=== PATIENT | female | born 1945 | race Caucasian/White ===

== ENCOUNTER 2016-11-20 14:26 | Observation (INO) ==
--- NOTE | 2016-11-20 14:50 | Cardiology History & Physical ---
Date of Encounter: 11/20/16 Time of Encounter: 14:46 Assessment and Plan (1) CAD (coronary artery disease) Current Visit: Yes Status: Chronic Per cardiology: -Known CAD with CABG x3 2007, -LHC 2011 with 100% LAD, 70-80% proximal circumflex, 100% RCA, distal RCA fills from left to right collaterals, ZAYAS to LAD patent with previous stent patent, SVG to RCA occluded, SVG to OM occluded. -ECho 2013 with LVEF 65-70%, mild asymmetric septal hypertrophy, No evidence of LVOT obstruction, moderate elft ventricular diastolic dysfunction, mildly dilated left atrium, no significnat valvular dysfunction, all wall segments with normal motion. -Patient was seen and examined by in outpatient setting. PLan for [facility]. Patient being admitted now for IV fluid hydration. -Patient reported at last cardiology visit increasing chest pain at rest and with excertion. Also reports shortness of breath with excertion. -Patient at home on norvasc, imdur, plavix, metoprolol, losartan, and ranexa at home. -Per discussion with , will start mucomyst 1200mg po BID. -Will start IV fluids at 75ml/horu starting tonight at 2000. -Will obtain CBC, BMP, and ECG. -Plan for [facility] tomorrow pending labs and ECG. The assessment and plan as outlined above was discussed with the patient and/or family members who expressed understanding and agreement. All questions were answered. Qualifiers: Coronary Disease-Associated Artery/Lesion type: unspecified vessel or lesion type [place] vs. transplanted heart: [place] heart Associated angina: with unspecified angina Qualified Code(s): I25.119 - Atherosclerotic heart disease of [place] coronary artery with unspecified angina pectoris (2) Hypertension Current Visit: Yes Status: Chronic Per cardiology: -Known history of HTN. -Will continue home doses of anti-hypertensives. -Will continue to monitor. The assessment and plan as outlined above was discussed with the patient and/or family members who expressed understanding and agreement. All questions were answered. Qualifiers: Hypertension type: essential hypertension Qualified Code(s): I10 - Essential (primary) hypertension (3) Diabetes mellitus Current Visit: Yes Status: Chronic Per cardiology: -Known DM type 2. -Will re-start home dose of oral diabetes medications. -Will order FS ACHS with sliding scale. The assessment and plan as outlined above was discussed with the patient and/or family members who expressed understanding and agreement. All questions were answered. Qualifiers: Diabetes mellitus type: type 2 Diabetes mellitus complication status: with kidney complications Diabetes mellitus complication detail: with chronic kidney disease Diabetes mellitus moth exterminator insulin use: without detention use Chronic kidney disease stage: stage 3 (moderate) Qualified Code(s): E11.22 - Type 2 diabetes mellitus with diabetic chronic kidney disease; N18.3 - Chronic kidney disease, stage 3 (moderate) (4) CKD (chronic kidney disease) stage 3, GFR 30-59 ml/min Current Visit: Yes Status: Chronic Per cardiology: -Known CKD stage 3. -Last creatinine 1.39 on 10/12/16. -Follows with . -Will give IV hydration overnight for LHC in am. -Will give mucomyst 1200mg po BID. _Will check BMP. -Will continue to monitor. The assessment and plan as outlined above was discussed with the patient and/or family members who expressed understanding and agreement. All questions were answered. History of Present Illness Chief complaint: hydration prior to LHC HPI: Ms. Neil is a 71 year old female with a relevant past medical history of GI bleed, CA, CAD, TB, HTN, RA, DM, CKD, CABG x3 2007. Patient reports she was a previous smoker and smoked 2 ppd for 50 years. Patient was seen and evaluated by in outpatient setting. Patient complained of chest pain at rest and with excertion. Patient also reported excertional dyspnea. Patient was scheduled for LHC. Patient admitted today for IV fluid hydration prior to LHC. Patient denies current chest pain. Patient reports shortness of breath and fatigue are about baseline. Patient will undergoe LHC tomorrow. Patient states she wears O2 at night. Past Med Surg Social Fam HX - Past Medical History Attestation: Yes The following information was validated with the patient. Source: patient, old records reviewed Medical history: coronary artery disease, diabetes, hypertension, myocardial infarction, other - Past Surgical History Surgical History: coronary bypass (CABG) - Social History Smoking Status: Former smoker Smokeless Tobacco Status: No Alcohol use: none Drug use: none Medications and Allergies Glimepiride [Amaryl] 4 mg PO BID 11/20/16 [History] Allergies No Known Allergies Allergy (Verified 10/12/16 11:48) All Systems Review: A 10-system review of systems was performed and is negative for pertinent findings except as documented above in the HPI. - Cardiovascular Cardiovascular: as per HPI, chest pain at rest, chest pain with exertion, dyspnea on exertion Physical Examination Selected Entries 11/20/16 15:08 Temperature 97.5 F L Pulse Rate 61 Respiratory Rate 17 Blood Pressure 166/70 O2 Sat by Pulse Oximetry 95 General: Conversant, No Apparent Distress HEENT: Atraumatic, Normocephaly, Mucus Membranes Moist Neck: No JVD, Normal carotid pulses Cardiac: Reg Rate and Rhythm, Normal S1 and S2, No Murmur Lungs: Normal Breath Sounds, No Wheeze, Rales, Rhonchi Neuro: Alert and responsive, No focal deficits noted Abdomen: Soft, Non-Tender Skin: No rashes noted on visualized skin Musculoskeletal: No Chest Wall Tenderness Extremities: No Clubbing, No Cyanosis, No Edema, Normal Pulses Results Labs pending. - Imaging and Cardiology Stress Test: report reviewed Echo: report reviewed Cardiac cath: pending, report reviewed - EKG Interpretation EKG results cardiology: personally reviewed (No ECG to review at this time, ECG ordered,)
[2016-11-20] MEDS ORDERED: Naloxone 0.4 MG/ML INJ IVP PRN (14:57)
[2016-11-20] MEDS ORDERED: Acetaminophen 325 MG TABLET PO PRN (14:57)
[2016-11-20] MEDS ORDERED: Ondansetron ODT 4 MG TAB.RAPDIS SL PRN (14:57)
[2016-11-20] MEDS ORDERED: Dextrose Gel 15 GM PO PRN ×2 (15:15)
[2016-11-20] MEDS ORDERED: *HR* Dextrose 50 % in Water (Syg) 50 ML SYRINGE IVP PRN (15:15)
[2016-11-20] MEDS ORDERED: D5% in Water 1,000 ML IVC PRN (15:15)
[2016-11-20 15:31] LABS: Basophils % 0.2 %; Eosinophils # 0.2 K/mcL (0.0-0.6); Hematocrit 36.1 % (35.3-44.9); Hemoglobin 12.1 g/dL (11.5-15.4); Immature Granulocytes % 0.4 % (0-4); Lymphocytes # 1.7 K/mcL (0.6-4.6); Mean Corpuscular HGB Conc 33.5 g/dL (31.6-35.5); Mean Corpuscular Hemoglobin 29.4 pg (28.0-33.3); Mean Corpuscular Volume 87.8 fL (83.0-100.0); Mean Platelet Volume 11.7 fL (9.4-12.4); Monocytes # 0.9 K/mcL (0.0-1.3); Monocytes % 9.3 %; Neutrophils # 7.2 K/mcL (1.6-8.9); Platelet Count 169 K/mcL (140-400); Red Blood Count 4.11 M/mcL (3.82-4.97); Red Cell Distribution Width 13.4 % (11.5-14.5); Segmented Neutrophils % 71.1 %
[2016-11-20] MEDS ORDERED: Nitroglycerin 0.4 MG TAB.SUBL SL PRN (15:38)
[2016-11-20] MEDS ORDERED: Ondansetron ODT 4 MG TAB.RAPDIS PO PRN (15:38)
[2016-11-20] MEDS ORDERED: *HR* LORazepam 1 MG TABLET PO PRN (15:38)
[2016-11-20] MEDS ORDERED: *HR* OxyCODONE/APAP 5/325 TABLET PO PRN (15:40)
[2016-11-20] MEDS ORDERED: *HR* Enoxaparin 40 MG/0.4 ML SYRINGE SQ ONE (15:42)
[2016-11-20 15:43] LABS: Calcium 9.2 mg/dL (8.6-10.8); Potassium 4.6 mEq/L (3.5-4.5)
[2016-11-20] MEDS ORDERED: 0.9 % Sodium Chloride 1,000 ML ONE (17:36)
[2016-11-20] MEDS: *HR* Glimepiride 4 MG TABLET PO SCH (17:45)
[2016-11-20] MEDS: 0.9 % Sodium Chloride 1,000 ML IVC SCH (17:45)
[2016-11-20] MEDS: Insulin LISPRO 300 UNITS/3 ML VIAL SQ SCH (17:45)
[2016-11-20] MEDS ORDERED: Insulin LISPRO 300 UNITS/3 ML VIAL SQ SCH (21:00)
[2016-11-20] MEDS ORDERED: *HR* Acetylcysteine 20% 600 MG/3 ML ORAL SYRINGE PO SCH (21:00)
[2016-11-20] MEDS ORDERED: SENNOSIDES PO SCH ×3 (21:00→23:00)
[2016-11-20] MEDS: Ranolazine 500 MG TAB.ER.12H PO SCH (21:40)
[2016-11-20] MEDS: Gabapentin 300 MG CAPSULE PO SCH (21:43)
[2016-11-21 03:54] LABS: INR 1.1; Prothrombin Time 12.2 Seconds (9.4-12.1)
[2016-11-21] MEDS: 0.9 % Sodium Chloride 1,000 ML IVC SCH (06:38)
[2016-11-21] MEDS: Insulin LISPRO 300 UNITS/3 ML VIAL SQ SCH ×2 (08:37→12:00)
[2016-11-21] MEDS: *HR* Glimepiride 4 MG TABLET PO SCH (08:38)
[2016-11-21] MEDS ORDERED: Ubidecarenone [Coq10] 200 MG PO SCH (09:00)
[2016-11-21] MEDS ORDERED: Cholecalciferol (D-3) 1,000 UNIT TABLET PO SCH (09:00)
[2016-11-21] MEDS ORDERED: FISH OIL PO SCH (09:00)
[2016-11-21] MEDS ORDERED: Multivit/Ca/Min/Fe/FA 1 TAB TABLET PO SCH (09:00)
[2016-11-21] MEDS ORDERED: amLODIPine 5 MG TABLET PO SCH (09:00)
[2016-11-21] MEDS: Gabapentin 300 MG CAPSULE PO SCH (10:18)
[2016-11-21] MEDS: Ranolazine 500 MG TAB.ER.12H PO SCH (10:18)
--- NOTE | 2016-11-21 11:31 | Pre-Sedation Evaluation ---
Pre-sedation evaluation - Pre-sedation checklist Date of procedure: 11/21/16 Procedure: heart cath Recent Vitals: Last Vital Signs Temp 98.2 F 11/21/16 07:24 Pulse 65 11/21/16 07:24 Resp 16 11/21/16 07:24 BP 126/67 11/21/16 07:24 Pulse Ox 90 11/21/16 09:00 H&P (including ROS) documented in medical record: Yes Previous reaction to sedatives/anesthetics: No Dietary Status: NPO after Midnight ASA Classification *see protocol: CLASS II-Mild systemic disease Plan of Care: Pt appropriate candidate for procedure/moderate/conscious sedation , Risks/benefits of procedure/sedation discussed w/ patient/family
[2016-11-21] MEDS ORDERED: Heparin 1,000 UNITS/500 mL NS 500 ML ONE (13:22)
[2016-11-21] MEDS ORDERED: 0.9 % Sodium Chloride 1,000 ML ONE ×2 (13:22→13:54)
[2016-11-21] MEDS ORDERED: Nitroglycerin 1,000 MCG/10 ML VIAL IV ONE (13:23)
[2016-11-21] MEDS ORDERED: *HR* Heparin 10,000 UNIT/10 ML VIAL ONE (13:23)
[2016-11-21] MEDS ORDERED: *HR* Midazolam HCl 5 MG/5 ML VIAL IVP ONE (13:54)
[2016-11-21] MEDS ORDERED: *HR* FentaNYL (PF) 100 MCG/2 ML VIAL ONE (13:54)
--- NOTE | 2016-11-21 14:18 | Event Note ---
Date of Encounter: 11/21/16 Time of Encounter: 14:00 - Cardiology Event Note Severe CAD with patent ZAYAS LAD and left to right collaterals and severe circumflex stenosis. Patient notes she continues having chest discomfort like her previous angina despite medical therapy. A/R/B of [facility] discussed multiple times in clinic before and patient decided recently to proceed with invasive evaluation.
[2016-11-21] MEDS ORDERED: 0.9 % Sodium Chloride 1,000 ML IVC SCH (15:16)
--- NOTE | 2016-11-21 15:26 | Invasive Diagnostic Lab Proc ---
Name: Jammie Neil Date of Study: 11/21/2016 Date: 1945 Ht: 63.0in Medical Record#: [id number] Age: 71 Wt: 210.54lb Gender: Female BSA: 1.98 Order #: [id number] BMI: 37.3 Physicians Procedure Physician: Christopher Kim MD, FACC Referring MD: Referring MD: Staff Name Position Time In Lizzy Roberts RN Antenna Specialist 01:59 PM Camille Perez RT (R) Scrub 01:59 PM Sara Benavides RN Monitor 01:59 PM Pili Fong RN Nurse 01:59 PM Indications Indication Abnormal Test - Stress Procedures Performed Procedure L HRT ART/GRFT ANGIO Pre-Procedure Checklist Informed consent is complete signed and on chart. H\\T\\P is on chart. ID band is on and ID verified with patient. Patient NPO for procedure The procedure was described for the patient and questions were answered. ECG is on chart. Plan of Care Patient will tolerate the procedure without complications. Adequate level of comfort will be maintained. Hemodynamics will remain stable Patient will recover from procedure without complications. Respiratory function will be maintained. Cardiac rhythm will remain stable. Patient temperature will be maintained. Patient and/or family have verbalized understanding of the procedure. Patient Education Chief Complaint/Reason for Test: Cardiac Cath Developmental Category: Geriatric (65+ years) Developmentally Appropriate for Age: Yes Learning Barriers: None Education Needs: Plan of Care Education Method: Verbal Information Taught: Cardiac Cath Educational Evaluation: Able to repeat information Intravenous Access Time IV Size Location DC'd Fluid/Drip Rate Units RN 20g 1 06/26" Patent On Arrival Rt Arm 0.9NaCl 25 ml/hr Allergies No Known Allergies NKA Vital Signs Time BP (mmHg) HR (bpm) O2 Sat. RR (bpm) LOC 01:59 PM / % 5 = Fully awake and oriented or at pre-proc level 01:59 PM / % 4 = Oriented but drowsy 02:15 PM / % 5 = Fully awake and oriented or at pre-proc level 02:30 PM / % 5 = Fully awake and oriented or at pre-proc level 02:45 PM / % 4 = Oriented but drowsy 02:51 PM / % 5 = Fully awake and oriented or at pre-proc level 02:07 PM 157 / 81 59 100 % 10 02:11 PM 123 / 71 57 94 % 4 02:16 PM 106 / 71 57 93 % 15 02:21 PM 111 / 63 57 94 % 13 02:26 PM 122 / 63 53 97 % 15 02:31 PM 119 / 64 57 91 % 13 02:36 PM 118 / 64 57 93 % 15 02:41 PM 109 / 58 57 93 % 22 02:47 PM 124 / 63 59 91 % 11 02:51 PM 129 / 62 57 93 % 02:56 PM 128 / 62 58 93 % 16 03:01 PM 136 / 64 57 93 % 16 03:07 PM 132 / 60 55 93 % 18 Procedural Medications Time Medication Dose Units Method Given By 01:59 PM Oxygen 2 L/min nasal cannula Lizzy Roberts RN 02:07 PM Versed 3 mg Intravenous Lizzy Roberts RN 02:07 PM Fentanyl 50 mcg Intravenous Lizzy Roberts RN 02:25 PM Lidocaine 2% 20 ml Subcutaneous Christopher Kim MD, FACC 02:27 PM Versed 1 mg Intravenous Lizzy Roberts RN 02:27 PM Fentanyl 25 mcg Intravenous Lizzy Roberts RN ASA Classification: CLASS II- Mild systemic disease (i.e. well-controlled diabetes, hypertension, asthma, cigarette smoking) Presley Score Preprocedure Postprocedure Activity 2- Moves 4 extremities sustained head lift Activity 2- Moves 4 extremities sustained head lift Circulation 2- SBP +/= 20 points of pre-anesthetic level Circulation 2- SBP +/= 20 points of pre-anesthetic level Consciousness 2- Awake and alert oriented x 3 Consciousness 2- Awake and alert oriented x 3 O2 Saturation 2- Able to maintain O2 satruation of 92% on room air O2 Saturation 2- Able to maintain O2 satruation of 92% on room air Respiratory 2- Able to deep breathe and cough well Respiratory 2- Able to deep breathe and cough well Total Score 10 Total Score 10 Contrast Agent: Isovue Procedure Log Time Note Enter By 01:19 PM CathStat 01:59 PM Pt arrived to clinical genetics laboratory chief 2 at 13:58 [email or web address] 01:59 PM Lizzy Roberts RN Position: Antenna Specialist Time in: 13:59 [email or web address] 01:59 PM Camille Perez RT (R) Position: Scrub Time in: 13:59 [email or web address] 01:59 PM Woodward, Sara RN Position: Monitor Time in: 13:59 [email or web address] :59 PM Pili Fong RN Position: Nurse Time in: 13:59 [email or web address] :59 PM Patient charges- Angio tray pack, Navilyst 3mm J, Pulse Oximetry and ACIST tubing and transducer [email or web address] :59 PM Case Delayed No [email or web address] :59 PM Hair removed from procedure site in procedure lab using clippers. Bilateral groin prepped with Chloraprep by Pili Fong RN, safety strap applied then patient was draped. Skin intact. [email or web address] :59 PM Physician arrived 13:59 [email or web address] :59 PM ASA Class CLASS II- Mild systemic disease (i.e. well-controlled diabetes, hypertension, asthma, cigarette smoking) [email or web address] :59 PM Tim and mehul completed [email or web address] :59 PM Sign in performed according to hospital policy. [email or web address] :59 PM Procedure start 13:59 [email or web address] :59 PM Time: 13:59 Oxygen on at 2 L/min per nasal cannula by Lizzy Roberts RN [facility]3 :59 PM Time: 13:59 Patient comfortable and pain free: Yes [email or web address] :59 PM Time: 13:59LOC: 5 = Fully awake and oriented or at pre-proc level [email or web address] :59 PM Clinical Presentation: Unstable angina [email or web address] 02:00 PM Case Start 02:05 PM Vitals capture started with the following parameters, Patient=Adult, Interval=5 min, Initial Tpcdpfmp=043 mmHg, Deflation Rate=5 mmHg, Cuff placed on Right Arm 02:06 PM Recorded ECG: HR=59 Condition=Condition 1 02:07 PM HR=59 bpm, RLJK=718/81 mmhg, VtD5=548.0 %, Resp=10 B/min, Comment=SR 02:07 PM Time: 14:07 Versed 3 mg Intravenous Given by Lizzy Roberts RN3 02:07 PM Time: 14:07 Fentanyl 50 mcg Intravenous Given by Lizzy Roberts RN 02:11 PM HR=57 bpm, VQCD=188/71 mmhg, SpO2=94.0 %, Resp=4 B/min 02:12 PM Pressure channel 1 zeroed. 02:15 PM Time: 13:59LOC: 4 = Oriented but drowsy [email or web address] 02:15 PM Time: 13:59 Patient comfortable and pain free: Yes [email or web address] 02:16 PM HR=57 bpm, XCQF=608/71 mmhg, SpO2=93.0 %, Resp=15 B/min, Comment=SR 02:19 PM Recorded ECG: HR=58 Condition=Condition 1 02:21 PM HR=57 bpm, TMBG=094/63 mmhg, SpO2=94.0 %, Resp=13 B/min, Comment=SB 02:22 PM Time out performed according to hospital policy [email or web address] 02:25 PM Time: 14:25 20 ml Lidocaine 2% to right groin Subcutaneous Given by Christopher Kim MD, [facility] [email or web address] 02:26 PM HR=53 bpm, WHCJ=303/63 mmhg, SpO2=97.0 %, Resp=15 B/min, Comment=SB 02:27 PM Time: 14:27 Versed 1 mg Intravenous Given by Lizzy Roberts RN3 02:27 PM Time: 14:27 Fentanyl 25 mcg Intravenous Given by Lizzy Roberts RN3 02:28 PM Micro-Introducer Kit utilized for sheath placement [email or web address] 02:30 PM Time: 14:15 Patient comfortable and pain free: Yes [email or web address] 02:30 PM Time: 14:15LOC: 5 = Fully awake and oriented or at pre-proc level [email or web address] 02:30 PM Sheath exchanged for a 5 Fr 11 cm Cordis Ernestine sheath [id number] [email or web address] 02:30 PM 5Fr FR 4 catheter inserted over the wire [facility] [email or web address] 02:31 PM HR=57 bpm, LOOK=790/64 mmhg, SpO2=91.0 %, Resp=13 B/min, Comment=SB 02:31 PM 0.035 145cm VSI Patrick-Torque wire [id number] [email or web address] 02:34 PM Sheath exchanged for a 5 Fr 23 cm Cordis Ernestine sheath [id number] [email or web address] 02:36 PM HR=57 bpm, BKLK=570/64 mmhg, SpO2=93.0 %, Resp=15 B/min, Comment=SB 02:38 PM Recorded Pressure: Ao, HR=58, Condition=Condition 1 (Aorta) Ao 108/51/77 02:41 PM HR=57 bpm, XVFH=445/58 mmhg, SpO2=93.0 %, Resp=22 B/min, Comment=SB 02:43 PM Catheter removed [email or web address] 02:43 PM 5Fr IM catheter inserted over the wire [id number] [email or web address] 02:44 PM Recorded Pressure: Ao, HR=59, Condition=Condition 1 (Aorta) Ao 114/40/67 02:45 PM Recorded Pressure: Ao, HR=60, Condition=Condition 1 (Aorta) Ao 103/55/76 02:45 PM Time: 14:30LOC: 5 = Fully awake and oriented or at pre-proc level [email or web address] 02:45 PM Time: 14:30 Patient comfortable and pain free: Yes [email or web address] 02:45 PM Left YANN to the LAD angio performed in multiple views. [email or web address] 02:47 PM HR=59 bpm, WSAA=839/63 mmhg, SpO2=91.0 %, Resp=11 B/min, Comment=SB 02:47 PM 5Fr FL 4 catheter inserted over the wire DNC [email or web address] 02:47 PM Recorded Pressure: Ao, HR=59, Condition=Condition 1 (Aorta) Ao 114/59/82 02:47 PM LCA angiography performed in multiple views. [email or web address] 02:50 PM Lesion found in Proximal Circumflex. Pre Stenosis: 80 Pre LEW Flow: 3: Complete and Brisk Flow/Perfusion [email or web address] 02:50 PM Circumflex, Obtuse Marginal, Left Posterior Descending, and Left Posterolateral Coronary Arteries with 80 % stenosis. [email or web address] 02:51 PM HR=57 bpm, JYUX=672/62 mmhg, SpO2=93.0 %, Comment=SB 02:51 PM Catheter removed [email or web address] 02:51 PM 5Fr 3DRC catheter inserted over the wire [id number] [email or web address] 02:51 PM Time: 14:45LOC: 4 = Oriented but drowsy [email or web address] 02:51 PM Time: 14:45 Patient comfortable and pain free: Yes [email or web address] 02:52 PM Recorded Pressure: Ao, HR=57, Condition=Condition 1 (Aorta) Ao 124/50/79 02:53 PM Recorded Pressure: Ao, HR=57, Condition=Condition 1 (Aorta) Ao 113/37/80 02:53 PM RCA angiography performed in [place]. [email or web address] 02:53 PM Catheter removed [email or web address] 02:54 PM 5Fr Pigtail catheter inserted over the wire [facility] [email or web address] 02:54 PM Catheter selectively placed in left ventricle [email or web address] 02:55 PM Recorded Pressure: LV, HR=58, Condition=Condition 1 (Left Ventricle) LV 142/5/18 02:55 PM Recorded Pressure: LV, Ao, HR=62, Condition=Condition 1 (Left Ventricle) LV 131/6/13, (Aorta) Ao 100/52/71 02:55 PM Catheter removed [email or web address] 02:56 PM Bolus angiogram of right Femoral complete: 4 ml/sec for a total of 7 mls [email or web address] 02:56 PM HR=58 bpm, ZBLN=535/62 mmhg, SpO2=93.0 %, Resp=16 B/min, Comment=SB 02:57 PM Sheath exchanged for a 5 Fr 11 cm Cordis Ernestine sheath [id number] [email or web address] 02:59 PM Procedure completed at 14:59 [email or web address] 03:01 PM Arterial sheath pulled, Mynx closure device used and was Successful S/N. [email or web address] 03:01 PM HR=57 bpm, ZYMN=787/64 mmhg, SpO2=93.0 %, Resp=16 B/min, Comment=SB 03:03 PM Coronary Dominance: right [email or web address] 03:03 PM Lesion found in Proximal RCA. Pre Stenosis: 100 Pre LEW Flow: 0: No Flow/No perfusion [email or web address] 03:04 PM Right Coronary, Right Posterior Descending Arteries with Right Posterolateral and Acute Marginal branches with 100 % stenosis. [email or web address] 03:04 PM Lesion found in Proximal LAD. Pre Stenosis: 100 Pre LEW Flow: 0: No Flow/No perfusion [email or web address] 03:04 PM Proximal Left Anterior Descending Coronary Artery with 100% stenosis. [email or web address] 03:07 PM HR=55 bpm, HLDM=357/60 mmhg, SpO2=93.0 %, Resp=18 B/min, Comment=SB 03:07 PM Time: 14:51LOC: 5 = Fully awake and oriented or at pre-proc level [email or web address] 03:07 PM Time: 14:51 Patient comfortable and pain free: Yes [email or web address] 03:10 PM Complications: None [email or web address] 03:10 PM Opsite applied [email or web address] 03:13 PM Post ECG Sinus Bradycardia [email or web address] 03:13 PM Post Blood Pressure 132/60 [email or web address] 03:13 PM 15:13 Post Pulses Bilateral DP \\T\\ PT 1+ [email or web address] 03:15 PM Information taught Mynx [email or web address] 03:15 PM Education needs Disease Process and Responsibilities of Patient in Care [email or web address] 03:15 PM Learning barriers :None [email or web address] 03:16 PM Education Methods Verbal [email or web address] 03:16 PM Education evaluation Able to repeat information [email or web address] 03:16 PM Site status No bleeding/hematoma - Rt Groin as reported by Sites, Camille RT (R) at 15:10 [email or web address] 03:16 PM Report given to Gem CONWAY Pt taken to 3B Room #39. 15:16 [email or web address] 03:16 PM Plavix, Effient or Brilinta given No [email or web address] 03:16 PM Delay to floor No [email or web address] 03:16 PM Patient out of room: 15:16 [email or web address] 03:16 PM Family placed in consult room. [email or web address] 03:16 PM Complications: None [email or web address] Complications Complication None Hemodynamics Pressures Site Systolic/A Wave Diastolic/V Wave Mean AO 108 51 77 AO 114 40 67 AO 103 55 76 AO 114 59 82 AO 124 50 79 AO 113 37 80 LV 142 5 18 LV 131 6 13 AO 100 52 71 Post Procedure Information Blood Pressure: 132/60 mmHg Rhythm: Sinus Bradycardia Post procedural instructions were given Closure Device Time Device Success/Fail 11/21/2016 3:01:00 PM Mechanical Compression Successful Site Checks Time Location Status Staff Sheath In? Note 03:10 PM Rt Groin No bleeding/hematoma Sites, Camille RT (R) Pulses Time Site Pre-Procedure Post-Procedure Note 11/21/2016 1:59:00 PM Bilateral DP \\T\\ PT 2+ 11/21/2016 1:59:00 PM Bilateral radial 2+ 3:13:00 PM Bilateral DP \\T\\ PT 1+ Updated by Sara Benavides RN on 11/21/2016 3:18:20 PM Pili Fong RN electronically signed on 11/21/2016 3:20:28 PM with status of Final
--- NOTE | 2016-11-21 16:13 | Discharge Summary ---
Date of Encounter: 11/21/16 Time of Encounter: 16:11 - Discharge Diagnosis (1) Stable angina Priority: Primary Status: Acute (2) CAD (coronary artery disease) Priority: Primary Status: Chronic Qualifiers: Coronary Disease-Associated Artery/Lesion type: unspecified vessel or lesion type [place] vs. transplanted heart: [place] heart Associated angina: with stable angina Qualified Code(s): I25.118 - Atherosclerotic heart disease of [place] coronary artery with other forms of angina pectoris (3) Hypertension Priority: Secondary Status: Chronic Qualifiers: Hypertension type: essential hypertension Qualified Code(s): I10 - Essential (primary) hypertension (4) Diabetes mellitus Priority: Secondary Status: Chronic Qualifiers: Diabetes mellitus type: type 2 Diabetes mellitus complication status: with kidney complications Diabetes mellitus complication detail: with chronic kidney disease Diabetes mellitus detention insulin use: without salvage determiner use Chronic kidney disease stage: stage 3 (moderate) Qualified Code(s): E11.22 - Type 2 diabetes mellitus with diabetic chronic kidney disease; N18.3 - Chronic kidney disease, stage 3 (moderate) (5) CKD (chronic kidney disease) stage 3, GFR 30-59 ml/min Priority: Secondary Status: Chronic - Discharge Medications Home Medications: RX: Atorvastatin [Lipitor] 40 mg PO HS 11/20/16 [History] RX: Cholecalciferol (D-3) [Vitamin D] 5,000 units PO DAILY 11/20/16 [History] RX: Clopidogrel [Plavix] 75 mg PO DAILY 11/20/16 [History] RX: Docusate Sodium [Dok] 400 mg PO HS 11/20/16 [History] RX: Gabapentin [Neurontin] 300 mg PO BID 11/20/16 [History] RX: Glimepiride [Amaryl] 4 mg PO BID 11/20/16 [History] RX: Isosorbide MONOnitrate [Isosorbide Mononitrate ER] 120 mg PO DAILY 11/20/16 [History] RX: LORazepam [Ativan] 1 mg PO Q6HR PRN 11/20/16 [History] RX: Losartan Potassium [Cozaar] 50 mg PO DAILY 11/20/16 [History] RX: Metoprolol [Lopressor] 12.5 mg PO BID 11/20/16 [History] RX: Multivitamin [Multivitamins] 1 each PO DAILY 11/20/16 [History] RX: Nitroglycerin [Nitrostat] 0.4 mg SL Q5M PRN 11/20/16 [History] RX: Ondansetron ODT [Zofran ODT] 8 mg PO Q8H PRN 11/20/16 [History] RX: Pantoprazole Sodium [Protonix] 40 mg PO DAILY 11/20/16 [History] RX: Ranolazine [Ranexa] 1,000 mg PO BID 11/20/16 [History] RX: Sennosides [Ex-Lax] 60 mg PO HS 11/20/16 [History] RX: amLODIPine [Norvasc] 2.5 mg PO DAILY 11/20/16 [History] RX: Metoprolol [Lopressor] 12.5 mg PO BID tablet 11/21/16 [Rx] Allergies/Adverse Reactions: Allergies No Known Allergies Allergy (Verified 10/12/16 11:48) Procedures/tests Complete & Pending: Procedures Performed prior 72 hours Category Date Time Status CL Cardiac Catheterization [CL] Routine [employer] 11/21/16 12:00 Ordered ECG 12 lead ECG [ECG] Routine Y 11/20/16 14:57 Ordered Date of admission: 11/20/16 14:36 Primary care physician: Selene Lerner MD Consults: None Discharging clinician: Sea Oseguera Anticipated date of discharge: 11/21/16 - Patient Status Disposition: Home, Self-Care - Discharge Instructions Follow Up With: Selene Lerner MD [Primary Care Provider] - 12/04/16 3:00 pm - Diet and Activity Diet: low fat, low cholesterol - Hospital Course Hospital course: Ms. Neil is a 71 year old female who presented for IV hydration prior to planed left heart catheterization d/t history of CKD stage III. SHe has a past medical history of CAD s/p CABG and multiple PCI, DM type II, CKD and hypertension. She underwent LHC for ongoing worsening symptoms despite normal stress test. LHC completed today shows stable CAD. No intervention required. There was no complications from her procedure. She will be discharged with close outpatient f/u. - Time Spent with Patient Total time spent providing and/or coordinating discharge services:1 hr Physical Examination Vital Signs Temp Pulse Resp BP Pulse Ox 11/21/16 11:51 97.6 F 66 20 123/74 94 11/21/16 09:00 90 11/21/16 07:24 98.2 F 65 16 126/67 90 11/21/16 03:09 98.0 F 60 20 135/74 96 11/20/16 23:42 98.4 F 60 18 149/66 95 11/20/16 19:13 97.6 F 78 16 117/80 96 Intake and Output 11/21/16 11/21/16 11/21/16 07:59 15:59 23:59 Intake Total 1000 / 1000 Balance 1000 / 1000 Intake: IV Fluids 1000 / 1000 0.9 % Sodium Chloride 1, 1000 / 1000 000 ML @ 75 mls/hr IVC . [id number] MANUELITO Rx#: [id number] Other: Meal npo # Voids 1 Weight 95.345 kg Blood Glucose* 122 108 Patient Weight 11/21/16 23:59 Weight 95.345 kg General: Conversant, No Apparent Distress HEENT: Atraumatic, Normocephaly, Mucus Membranes Moist Neck: No JVD, Normal carotid pulses Cardiac: Reg Rate and Rhythm, Normal S1 and S2, No Murmur Lungs: Normal Breath Sounds, No Wheeze, Rales, Rhonchi Neuro: Alert and responsive, No focal deficits noted Abdomen: Soft, Non-Tender Skin: No rashes noted on visualized skin Musculoskeletal: No Chest Wall Tenderness Extremities: No Clubbing, No Cyanosis, No Edema, Normal Pulses
[2016-11-21 18:17] VITALS: BP 134/77
--- NOTE | 2016-11-26 07:19 | Invasive Diagnostic Lab ---
Name: Jammie Niel Date of Study: 11/21/2016 Date: 1945 Ht: 160.0 cm /63.0 in Medical Record#: [id number] Age: 71 Wt: 95.5 kg / 210.54 lb Account/Order#: [id number] Gender: Female BSA: 1.98 Order #: [id number] Fluoro Dose: BMI: 37.3 Procedure Physician: Christopher Kim MD, [facility] Referring MD: Referring MD: Procedures Performed: LEFT HEART CATH W/ GRAFTS Iliofemoral angiography Indications: Abnormal Test - Stress, Chest pain Impressions: There is severe three vessel coronary artery disease. S/P CABG 1 of 3 patent bypass grafts (ZAAYS LAD) False positive stress test (2013) for obstructive coronary disease in the anterior and anterolateral chatterjee as the ZAYAS the LAD is widely patent that backfills the diagonal. CKD 3 Severe ostial right common iliac disease Recommendations: Optimal medical therapy of patient's disease. Aggressive risk factor modification. Continue vigorous hydration to reduce risk of ALENA SUSHIL / COLLABORATING SUPERVISING PHYSICIAN right common iliac if claudication History/Risk Factors: Diabetes Hypertension Family History of CAD Prior [place] Previous CABG Complications: None Procedure: Right femoral access obtained, 5French 23cm sheath placed. Iliofemoral angiography completed via sheath. Hemodynamics: Pressures Site Systolic/ A Wave Diastolic/ V Wave End Diastolic/ Mean HR AO 108 51 77 58 AO 114 40 67 59 AO 103 55 76 60 AO 114 59 82 59 AO 124 50 79 57 AO 113 37 80 57 LV 142 5 18 58 LV 131 6 13 58 AO 100 52 71 68 Coronary Dominance: right Lesion Findings/Interventions * Left Main Coronary Artery The LMCA is angiographically free of disease. * Left Anterior Descending There is a 100% stenosis in the Proximal LAD. The lesion has a ELW flow of 0. * Circumflex There is a 80% stenosis in the distal Circumflex involving distal OM bifurcation. The lesion has a LEW flow of 3. Mid vessel is very tortuous with hairpin turn. * Right Coronary Artery There is a 100% stenosis in the Proximal RCA. The lesion has a LEW flow of 0 and has collaterals which feed from left to right via septals and circumflex. Additional Findings: Grafts * The left internal mammary graft to the Mid LAD is patent which backfills diagonal 1. LEW flow is 3. * The saphenous vein graft to the Mid RCA is occluded. * The saphenous vein graft to the 1st Marginal is occluded. Right Ilio-Femoral * 80% stenosis in the right iliac artery. Appropriate sheath placement Updated by Sara Benavides RN on 11/21/2016 3:11:32 PM Christopher Kim MD, FACC electronically signed on 11/26/2016 7:13:33 AM with status of Final
== END 2016-11-21 18:22 | disposition home or self-care (01) ==
LOC: 3BNU
PROVIDERS: ADMIT Emergency Medicine; ATTEND Internal Medicine

== ENCOUNTER 2018-05-09 13:08 | Observation (INO) ==
[2018-05-09] MEDS ORDERED: Nitroglycerin 0.4 MG TAB.SUBL SL ONE (13:50)
[2018-05-09] MEDS ORDERED: Aspirin 81 MG TAB.CHEW PO ONE (13:50)
--- NOTE | 2018-05-09 13:53 | Emergency Department Note ---
Disposition Clinical Impression: Hx of coronary artery disease, Elevated serum creatinine Chest pain Qualifiers: Chest pain type: unspecified Qualified Code(s): R07.9 - Chest pain, unspecified Disposition: Admitted As Inpatient Condition: Good Referrals: Selene Lerner MD [Primary Care Provider] - Forms: ED Satisfaction Letter Time of Disposition: 14:46 General Adult HPI - General Chief complaint: ED Chest Pain Stated complaint: chest pain Time Seen by Provider: 05/09/18 13:16 Source: patient Mode of arrival: ambulatory Limitations: no limitations Nursing Notes Reviewed: Yes Vital Signs Reviewed: Yes - History of Present Illness HPI Narrative: Patient is a 73-year-old female that presents emergency Department with chest pain. Patient states that this is been intermittent over the past couple of days. Patient states that she will have her pain at rest and even when she is sleeping and awake her up at night. Patient states that the pain is located in the center of her chest and radiates up into her right shoulder and right neck. She states that this seems different than her previous MIs which usually are into the left arm and feels like there is pain in her left elbow. Patient does report nausea and shortness of breath with her chest pain. She does state that she ate regularly does have shortness of breath and nausea but this all feels a little bit different. Patient stated that she does have that sense of impending doom with her chest pain. Patient states that she has had a history of coronary bypass and stent placement. Patient states that she recently did have a tooth extraction of the right upper jaw. Patient states that she had a little bit of a runny nose today as well and was concerned that possibly this was related to the tooth extraction. Pain Scale: 2 - Related Data Home Medications Medication Instructions Recorded Confirmed Atorvastatin [Lipitor] 40 mg PO HS 11/20/16 11/20/16 Cholecalciferol (D-3) [Vitamin D] 5,000 units PO DAILY 11/20/16 11/20/16 Clopidogrel [Plavix] 75 mg PO DAILY 11/20/16 11/20/16 Docusate Sodium [Dok] 400 mg PO HS 11/20/16 11/20/16 Gabapentin [Neurontin] 300 mg PO BID 11/20/16 11/20/16 Glimepiride [Amaryl] 4 mg PO BID 11/20/16 11/20/16 Isosorbide MONOnitrate [Isosorbide 120 mg PO DAILY 11/20/16 11/20/16 Mononitrate ER] LORazepam [Ativan] 1 mg PO Q6HR PRN 11/20/16 11/20/16 Losartan Potassium [Cozaar] 50 mg PO DAILY 11/20/16 11/20/16 Metoprolol [Lopressor] 12.5 mg PO BID 11/20/16 11/20/16 Multivitamin [Multivitamins] 1 each PO DAILY 11/20/16 11/20/16 Nitroglycerin [Nitrostat] 0.4 mg SL Q5M PRN 11/20/16 11/20/16 Ondansetron ODT [Zofran ODT] 8 mg PO Q8H PRN 11/20/16 11/20/16 Pantoprazole Sodium [Protonix] 40 mg PO DAILY 11/20/16 11/20/16 Ranolazine [Ranexa] 1,000 mg PO BID 11/20/16 11/20/16 Sennosides [Ex-Lax] 60 mg PO HS 11/20/16 11/20/16 Allergies Allergy/AdvReac Type Severity Reaction Status Date / Time biotin AdvReac Itching Verified 05/09/18 14:50 latex AdvReac Rash Verified 05/09/18 14:50 All systems ED: reviewed and negative except as stated. Cardiovascular: Reports: chest pain Respiratory: Reports: dyspnea Gastrointestinal: Reports: nausea. Denies: abdominal pain, vomiting Past Medical History - Past Medical History Medical history: Reports: coronary artery disease, diabetes, hypertension, myocardial infarction, renal disease, other Surgical history: Reports: coronary bypass (CABG) Psychiatric history: Reports: no psych history - Social History Smoking Status: Former smoker Smokeless Tobacco Status: No Alcohol use: Reports: none Drug use: Reports: none Physical Exam - General Limitations: no limitations General appearance: alert, in no apparent distress - Head Head exam: atraumatic, normocephalic - Eye Eye exam: Present: normal appearance, EOMI - ENT ENT exam: other (Right upper tooth extraction ) - Neck Neck exam: Present: normal inspection, full ROM, trachea midline - Respiratory Respiratory exam: Present: normal lung sounds bilaterally. Absent: respiratory distress, wheezes - Cardiovascular Cardiovascular exam: Present: regular rate, normal rhythm, systolic murmur (Mild ), +S1, +S2 - Abdominal Exam Abdominal exam: Present: soft, Non-Tender, normal bowel sounds - Neurological Exam Neurological exam: Present: alert, oriented X3 - Psychiatric Psychiatric exam: Present: normal affect, normal mood - Skin Skin exam: Present: warm, dry, intact Course Vital Signs Temperature 99.2 F 05/09/18 13:12 Pulse Rate 73 05/09/18 13:12 Respiratory Rate 22 05/09/18 13:12 Blood Pressure 179/78 05/09/18 13:12 O2 Sat by Pulse Oximetry 99 05/09/18 13:12 Temperature 98.4 F 05/09/18 14:47 Pulse Rate 60 05/09/18 14:47 Respiratory Rate 14 05/09/18 14:47 Blood Pressure 156/85 05/09/18 14:47 O2 Sat by Pulse Oximetry 96 05/09/18 14:47 Oxygen Delivery Oxygen Delivery Room Air Medical Decision Making - MDM Narrative Medical decision making narrative: Due the patient's and into the emergency Department with chest pain and a strong cardiac history there is concern for possible cardiac involvement. We will obtain basic laboratory tests including CBC, BMP, troponin chest x-ray and EKG. We will also likely admit the patient to the hospital for her chest pain. Patient will also be administered aspirin and nitroglycerin here in the [facility]. Patient stated that she did not want the nitro at this time. Chest x-ray does not show any acute cardiopulmonary process per radiology read. Her EKG does not show any acute ischemic changes. Patient does have an elevation in her creatinine however this does appear to be at the patient's baseline. Troponin is negative. EKG does not show any acute ischemic changes. Chest x-ray showed no acute cardio pulmonary process. The patient will need to be admitted to the hospital for further evaluation and management of her chest pain due to the patient having a strong cardiac history and history concerning for possible cardiac involvement. Patient is in agreement with being admitted in and said that her troponins are always initially negative during her heart attacks and are elevated later in the day or the next day. I called and spoke the admitting hospitalist Dr. Ramos and she is accepted the patient to their service. Patient be admitted to the hospital this time for further evaluation and management. - Medical Records Medical records reviewed: Yes I reviewed the patient's medical records. - Lab Data Lab results reviewed: Yes I reviewed the patient's lab results. Result diagrams: 05/09/18 14:02 05/09/18 14:02 Lab Results 05/09/18 05/09/18 05/09/18 Range/Units 14:02 14:02 14:02 WBC 6.5 (4.3-11.1) K/mcL RBC 4.25 (3.82-4.97) M/mcL Hgb 12.2 (11.5-15.4) g/dL Hct 36.9 (35.3-44.9) % MCV 86.8 (83.0-100.0) fL MCH 28.7 (28.0-33.3) pg MCHC 33.1 (31.6-35.5) g/dL RDW 14.1 (11.5-14.5) % Plt Count 143 (140-400) K/mcL MPV 11.8 (9.4-12.4) fL Immature Gran % 0.3 (0-4) % Seg Neutrophils % 72.4 % Lymphocytes % 17.7 % Monocytes % 7.8 % Eosinophils % 1.5 % Basophils % 0.3 % Neutrophils # 4.7 (1.6-8.9) K/mcL Lymphocytes # 1.2 (0.6-4.6) K/mcL Monocytes # 0.5 (0.0-1.3) K/mcL Eosinophils # 0.1 (0.0-0.6) K/mcL Basophils # 0.0 (0.0-0.2) K/mcL PT 12.1 (9.4-12.1) Seconds INR 1.1 Sodium 139 (136-145) mEq/L Potassium 3.7 (3.5-5.1) mEq/L Chloride 109 H (98-107) mEq/L Carbon Dioxide 19 L (23-29) mEq/L BUN 15 (8-23) mg/dL Creatinine 1.24 H (0.60-1.20) mg/dL Est GFR ( Amer) 51 L (> 60) Est GFR (Non-Af Amer) 42 L (> 60) BUN/Creatinine Ratio 12 (6-26) Glucose 198 H (70-105) mg/dL Calculated Osmolality 294 (280-300) Calcium 9.3 (8.6-10.3) mg/dL Troponin I < 0.03 (< 0.04) ng/mL - Radiology Data Radiology results reviewed: Yes I reviewed the patient's radiology results. Chest X-Ray 05/09/18 13:50 IMPRESSION: No acute abnormality detected. D/ / Thomas Dillard MD / Thomas Dillard MD Interpreting Provider: Thomas Dillard MD - EKG Data EKG #1 EKG attestation: Yes I reviewed and interpreted this EKG. EKG results narrative: EKG shows a sinus rhythm and rate of 65 bpm, DE interval of 206, QRS duration of 94, QTc of 443. This is compared to previous EKG on 02/06/18 which showed a sinus rhythm at a rate of 78 bpm.
--- NOTE | 2018-05-09 14:08 | Emergency Department Note ---
Disposition Clinical Impression: Chest pain, Hx of coronary artery disease, Elevated serum creatinine Disposition: Admitted As Inpatient Condition: Good Referrals: Selene Lerner MD [Primary Care Provider] - Forms: ED Satisfaction Letter General Adult HPI - General Chief complaint: ED Chest Pain Stated complaint: chest pain Time Seen by Provider: 05/09/18 13:16 Source: patient Mode of arrival: ambulatory Limitations: no limitations - History of Present Illness Pain Scale: 2 - Related Data Home Medications Medication Instructions Recorded Confirmed Atorvastatin [Lipitor] 40 mg PO HS 11/20/16 11/20/16 Cholecalciferol (D-3) [Vitamin D] 5,000 units PO DAILY 11/20/16 11/20/16 Clopidogrel [Plavix] 75 mg PO DAILY 11/20/16 11/20/16 Docusate Sodium [Dok] 400 mg PO HS 11/20/16 11/20/16 Gabapentin [Neurontin] 300 mg PO BID 11/20/16 11/20/16 Glimepiride [Amaryl] 4 mg PO BID 11/20/16 11/20/16 Isosorbide MONOnitrate [Isosorbide 120 mg PO DAILY 11/20/16 11/20/16 Mononitrate ER] LORazepam [Ativan] 1 mg PO Q6HR PRN 11/20/16 11/20/16 Losartan Potassium [Cozaar] 50 mg PO DAILY 11/20/16 11/20/16 Metoprolol [Lopressor] 12.5 mg PO BID 11/20/16 11/20/16 Multivitamin [Multivitamins] 1 each PO DAILY 11/20/16 11/20/16 Nitroglycerin [Nitrostat] 0.4 mg SL Q5M PRN 11/20/16 11/20/16 Ondansetron ODT [Zofran ODT] 8 mg PO Q8H PRN 11/20/16 11/20/16 Pantoprazole Sodium [Protonix] 40 mg PO DAILY 11/20/16 11/20/16 Ranolazine [Ranexa] 1,000 mg PO BID 11/20/16 11/20/16 Sennosides [Ex-Lax] 60 mg PO HS 11/20/16 11/20/16 Allergies Allergy/AdvReac Type Severity Reaction Status Date / Time biotin AdvReac Itching Verified 05/09/18 14:50 latex AdvReac Rash Verified 05/09/18 14:50 Cardiovascular: Reports: chest pain Respiratory: Reports: dyspnea Gastrointestinal: Reports: nausea. Denies: abdominal pain, vomiting Past Medical History - Past Medical History Medical history: Reports: coronary artery disease, diabetes, hypertension, myocardial infarction, renal disease, other Surgical history: Reports: coronary bypass (CABG) Psychiatric history: Reports: no psych history - Social History Smoking Status: Former smoker Smokeless Tobacco Status: No Alcohol use: Reports: none Drug use: Reports: none Physical Exam - General Limitations: no limitations General appearance: alert, in no apparent distress Course Vital Signs Temperature 99.2 F 05/09/18 13:12 Pulse Rate 73 05/09/18 13:12 Respiratory Rate 22 05/09/18 13:12 Blood Pressure 179/78 05/09/18 13:12 O2 Sat by Pulse Oximetry 99 05/09/18 13:12 Temperature 98.4 F 05/09/18 14:47 Pulse Rate 60 05/09/18 14:47 Respiratory Rate 14 05/09/18 14:47 Blood Pressure 156/85 05/09/18 14:47 O2 Sat by Pulse Oximetry 96 05/09/18 14:47 Oxygen Delivery Oxygen Delivery Room Air Medical Decision Making - Lab Data Result diagrams: 05/09/18 14:02 05/09/18 14:02 Lab Results 05/09/18 05/09/18 05/09/18 Range/Units 14:02 14:02 14:02 WBC 6.5 (4.3-11.1) K/mcL RBC 4.25 (3.82-4.97) M/mcL Hgb 12.2 (11.5-15.4) g/dL Hct 36.9 (35.3-44.9) % MCV 86.8 (83.0-100.0) fL MCH 28.7 (28.0-33.3) pg MCHC 33.1 (31.6-35.5) g/dL RDW 14.1 (11.5-14.5) % Plt Count 143 (140-400) K/mcL MPV 11.8 (9.4-12.4) fL Immature Gran % 0.3 (0-4) % Seg Neutrophils % 72.4 % Lymphocytes % 17.7 % Monocytes % 7.8 % Eosinophils % 1.5 % Basophils % 0.3 % Neutrophils # 4.7 (1.6-8.9) K/mcL Lymphocytes # 1.2 (0.6-4.6) K/mcL Monocytes # 0.5 (0.0-1.3) K/mcL Eosinophils # 0.1 (0.0-0.6) K/mcL Basophils # 0.0 (0.0-0.2) K/mcL PT 12.1 (9.4-12.1) Seconds INR 1.1 Sodium 139 (136-145) mEq/L Potassium 3.7 (3.5-5.1) mEq/L Chloride 109 H (98-107) mEq/L Carbon Dioxide 19 L (23-29) mEq/L BUN 15 (8-23) mg/dL Creatinine 1.24 H (0.60-1.20) mg/dL Est GFR ( Amer) 51 L (> 60) Est GFR (Non-Af Amer) 42 L (> 60) BUN/Creatinine Ratio 12 (6-26) Glucose 198 H (70-105) mg/dL Calculated Osmolality 294 (280-300) Calcium 9.3 (8.6-10.3) mg/dL Troponin I < 0.03 (< 0.04) ng/mL Attestation Statement - Attestation Attestation: I examined this patient and my medical decision-making was reviewed with the Resident Physician. I agree with the documented findings, disposition and treatment plan as described except to the extent set forth below. Patient presents to the emergency department with a chief complaint chest pain. Substernal range of the right shoulder and neck. Different than prior cardiac chest pain. Onset a couple of days ago. Waxing and waning. Currently pain free. She has an extensive cardiac history including CABG and stents. She is in no acute distress on examination. Her heart regular rate and rhythm her lungs are clear. Plan. Cardiac workup and likely admission. Workup is unremarkable. Patient is admitted for further cardiac workup secondary to risk factors. Chest X-Ray 05/09/18 13:50 IMPRESSION: No acute abnormality detected. D/ / Thomas Dillard MD / Thomas Dillard MD Interpreting Provider: Thomas Dillard MD
[2018-05-09 14:17] LABS: Basophils % 0.3 %; Eosinophils # 0.1 K/mcL (0.0-0.6); Eosinophils % 1.5 %; Hematocrit 36.9 % (35.3-44.9); Hemoglobin 12.2 g/dL (11.5-15.4); Immature Granulocytes % 0.3 % (0-4); Lymphocytes # 1.2 K/mcL (0.6-4.6); Lymphocytes % 17.7 %; Mean Corpuscular HGB Conc 33.1 g/dL (31.6-35.5); Mean Corpuscular Hemoglobin 28.7 pg (28.0-33.3); Mean Corpuscular Volume 86.8 fL (83.0-100.0); Mean Platelet Volume 11.8 fL (9.4-12.4); Monocytes # 0.5 K/mcL (0.0-1.3); Monocytes % 7.8 %; Neutrophils # 4.7 K/mcL (1.6-8.9); Platelet Count 143 K/mcL (140-400); Red Blood Count 4.25 M/mcL (3.82-4.97); Red Cell Distribution Width 14.1 % (11.5-14.5); Segmented Neutrophils % 72.4 %
[2018-05-09 14:23] LABS: INR 1.1; Prothrombin Time 12.1 Seconds (9.4-12.1)
[2018-05-09 14:38] LABS: BUN/Creatinine Ratio 12 (6-26); Blood Urea Nitrogen 15 mg/dL (8-23); Calcium 9.3 mg/dL (8.6-10.3); Carbon Dioxide 19 mEq/L (23-29); Chloride 109 mEq/L (98-107); Glucose 198 mg/dL (70-105); Osmolality,Calculated 294 (280-300); Potassium 3.7 mEq/L (3.5-5.1); Sodium 139 mEq/L (136-145); Troponin I < 0.03 ng/mL (< 0.04); eGFR For Non-African Americans 42 (> 60)
[2018-05-09] MEDS ORDERED: D5% in Water 1,000 ML IVC PRN ×2 (16:00→16:02)
[2018-05-09] MEDS ORDERED: Nitroglycerin 0.4 MG TAB.SUBL SL PRN (16:00)
[2018-05-09] MEDS ORDERED: *HR* Dextrose 50 % in Water (Syg) 50 ML SYRINGE IVP PRN ×2 (16:00→16:02)
[2018-05-09] MEDS ORDERED: Naloxone 0.4 MG/ML INJ IVP PRN (16:00)
[2018-05-09] MEDS ORDERED: Dextrose Gel 15 GM/37.5 ML TUBE PO PRN ×4 (16:00→16:02)
[2018-05-09] MEDS ORDERED: *HR* LORazepam 1 MG TABLET PO PRN (16:03)
--- NOTE | 2018-05-09 16:10 | Internal Med History&Physical ---
Date of Encounter: 05/09/18 Time of Encounter: 16:08 Internal Medicine - H&P: HPI Chief complaint: chest pain Admitted From: Home Plans for Post Hospital Care: Home History of present illness: Ms. Neil is a 73 year old female with a PMH of CABG X3, coronary artery disease, diabetes, hypertension, myocardial infarction, & CKD III. She presents today with a 3 to four-day history of intermittent midsternal atypical chest pain/discomfort with radiation to left and right shoulder as well as right neck. She describes the pain as a "sinking and skipping sensation". She denies any aggravating or alleviating factors. She does admit to some shortness of breath, diaphoresis, nausea and dizziness when this occurs. She reports that she follows with [place] cardiology was scheduled to have an echocardiogram in May due to similar episodes. She has a history of CABG 3 with [facility] in 12/07 showing 1 of 3 vessels patent. She denies any ill contacts, travel, abdominal pain, vomiting, diarrhea or URI symptoms, urinary symptoms, unilateral extremity swelling or pain. The time of my assessment she is having chest pain that is intermittent and 2/10. She does not appear to be in distress and is resting comfortably in bed. She does note that she recently had a tooth extraction of her 2nd molar and was wondering if this could have "triggered something". 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 Given her history she is being admitted for observation for further monitoring. Past Med Surg Social Fam HX - Past Medical History Medical history: coronary artery disease, diabetes, hypertension, myocardial infarction, renal disease, other Additional medical history: gi bleed Psychiatric history: no psych history - Past Surgical History Surgical History: coronary bypass (CABG) Additional surgical history: Stent, open heart - Social History Smoking Status: Former smoker Smokeless Tobacco Status: No Alcohol use: none Drug use: none - Family History Father Living Status: Cause of : [place] Hx Family Cardiac Disorders: Yes Hx Family Respiratory Disorders: No Son Living Status: Age at : 49 Hx Family Cardiac Disorders: Yes ([place]) Internal Medicine - H&P: Meds Atorvastatin [Lipitor] 40 mg PO HS 11/20/16 [History] Cholecalciferol (D-3) [Vitamin D] 5,000 units PO DAILY 11/20/16 [History] Clopidogrel [Plavix] 75 mg PO DAILY 11/20/16 [History] Docusate Sodium [Dok] 500 mg PO HS 11/20/16 [History] Gabapentin [Neurontin] 300 mg PO HS 11/20/16 [History] Glimepiride [Amaryl] 4 mg PO QAM 11/20/16 [History] LORazepam [Ativan] 1 mg PO DAILY PRN 11/20/16 [History] Losartan Potassium [Cozaar] 50 mg PO DAILY 11/20/16 [History] Metoprolol [Lopressor] 12.5 mg PO BID 11/20/16 [History] Multivitamin [Multivitamins] 1 each PO DAILY 11/20/16 [History] Nitroglycerin [Nitrostat] 0.4 mg SL Q5M PRN 11/20/16 [History] Ondansetron ODT [Zofran ODT] 8 mg PO Q8H PRN 11/20/16 [History] Ranolazine [Ranexa] 1,000 mg PO DAILY 11/20/16 [History] Sennosides [Ex-Lax] 75 mg PO HS 11/20/16 [History] Dulaglutide [Trulicity] 1.5 mg SQ SA 05/09/18 [History] Escitalopram Oxalate 5 mg PO DAILY 05/09/18 [History] Flaxseed 30 ml PO DAILY 05/09/18 [History] Isosorbide MONOnitrate [Isosorbide Mononitrate ER] 30 mg PO DAILY 05/09/18 [History] Pantoprazole Sodium [Protonix] 20 mg PO DAILY 05/09/18 [History] Psyllium Husk/Aspartame [Natural Fiber Powder] 40 ml PO DAILY 05/09/18 [History] Allergy/AdvReac Type Severity Reaction Status Date / Time biotin AdvReac Itching Verified 05/09/18 14:50 latex AdvReac Rash Verified 05/09/18 14:50 All Systems PM: A 10-system review of systems was performed and is negative for pertinent findings except as documented above in the HPI. Review of systems: REVIEW OF SYSTEMS GENERAL: Negative for any nausea, vomiting, fevers, chills, or weight loss. Positive for nausea NEUROLOGIC: Negative for any blurry vision, blind spots, double vision, facial asymmetry, dysphagia, dysarthria, hemiparesis, hemisensory deficits, vertigo, ataxia. HEENT: Negative for any head trauma, neck trauma, neck stiffness, photophobia, phonophobia, sinusitis, rhinitis. CARDIAC: Positive for any chest pain, dyspnea on exertion, diaphoresis PULMONARY: Negative for any shortness of breath, wheezing, COPD, or TB exposure. GASTROINTESTINAL: Negative for any abdominal pain, nausea, vomiting, bright red blood per rectum, melena. GENITOURINARY: Negative for any dysuria, hematuria, incontinence. INTEGUMENTARY: Negative for any rashes, cuts, insect bites. RHEUMATOLOGIC: Negative for any joint pains, photosensitive rashes, history of vasculitis or kidney problems. HEMATOLOGIC: Negative for any abnormal bruising, frequent infections or bleeding. - Constitutional Vitals: Temp Pulse Resp BP Pulse Ox 98.4 F 62 18 156/70 99 05/09/18 14:47 05/09/18 15:46 05/09/18 15:46 05/09/18 15:46 05/09/18 15:46 General appearance: Present: A&O X 3 Exam: see exam - Head Head exam: Present: atraumatic, normocephalic - Eye Eye exam: Present: EOMI, PERRL, conjuntiva pink, sclera anicteric Pupils: Present: PERRL - Neck Neck exam general surgery: Present: supple, trachea midline. Absent: lymphadenopathy - Respiratory Respiratory exam: Present: chest wall tenderness (mild midsternal), decreased breath sounds, CTAB. Absent: accessory muscle use, rales, rhonchi, wheezes - Cardiovascular Cardiovascular exam: Present: RRR, +S1, +S2. Absent: diastolic murmur, gallop, rubs, systolic murmur - GI/Abdominal GI/Abdominal exam: Present: normal bowel sounds, soft, no peritoneal signs. Absent: distended, tenderness - Extremities Exam Extremities exam: Present: warm, radial pulses palpable and symmetrical. Absent: calf tenderness, cyanotic, pedal edema - Neurological Exam Neurological exam: Present: CN II-XII intact, oriented X3, no focal deficits. Absent: pronater drift, facial droop, speech deficit - Skin Skin exam: Present: dry, intact Internal Med - H&P Results - Labs CBC & Chem 7: 05/09/18 14:02 05/09/18 14:02 Labs: Short CBC 05/09/18 Range/Units 14:02 WBC 6.5 (4.3-11.1) K/mcL Hgb 12.2 (11.5-15.4) g/dL Hct 36.9 (35.3-44.9) % Plt Count 143 (140-400) K/mcL Neutrophils # 4.7 (1.6-8.9) K/mcL BMP 05/09/18 14:02 Sodium 139 Potassium 3.7 Chloride 109 H Carbon Dioxide 19 L BUN 15 Creatinine 1.24 H Glucose 198 H Calcium 9.3 Cardiac Enzymes 05/09/18 Range/Units 14:02 Troponin I < 0.03 (< 0.04) ng/mL - EKG Data -: EKG Interpreted by Myself EKG shows normal: sinus rhythm Rate: normal - EKG Data Prior EKG available for review: yes When compared to previous EKG: there is no significant change Interpretation IM: normal EKG EKG comments: NSR rate 65 no ischemic changes when compared to prior 05/09/18 16:11 - Impressions ITS Impressions Chest X-Ray 05/09/18 13:50 IMPRESSION: No acute abnormality detected. D/ / Thomas Dillard MD / Thomas Dillard MD Interpreting Provider: Thomas Dillard MD - Assessment and plan (1) Chest pain Current Visit: Yes Status: Acute Assessment and plan: Atypica chest pain x 3-4 days described as "sinking and heart skipping" sensation getting progressively worse Associated s/sx included diaphoresis, nausea, dizziness, and dyspnea Significant CAD including CABG x3; LHC 12/07 with 1 of 3 bypass grafts patent --Aggressive risk factor modification and medical management chosen at this time Significant risk factors including; HTN Obesity, FMH DM, HDL, Sedentary --Mild chest pain at time of my assessment 08/02. Admit for observation for further monitoring and evaluation Increase Imdur dose if chest pain persists PLAN: - cardiac enzymes x 2 q 6 hr - EKG without ischemic changes - ASA 81mg daily - Continue Metoprolol - O2 by NC to keep SpO2 greater than 92% PRN - CBCD, BMP in AM - Heparin 5000 U SQ BID - 2D Echo - Increase Imdur dose Qualifiers: Chest pain type: unspecified Qualified Code(s): R07.9 - Chest pain, uns pecified (2) CAD (coronary artery disease) Current Visit: No Status: Chronic Assessment and plan: significant CAD; h/o CABG X3 [facility] 2017 - s/p CABG 1 0f 3 patent bypass grafts Optimal medical therapy and aggressive risk factor modification at that time Follows with [place] cardiology outpatient Qualifiers: Coronary Disease-Associated Artery/Lesion type: unspecified vessel or lesion type [place] vs. transplanted heart: [place] heart Associated angina: with stable angina Qualified Code(s): I25.118 - Atherosclerotic heart disease of [place] coronary artery with other forms of angina pectoris (3) CKD (chronic kidney disease) stage 3, GFR 30-59 ml/min Current Visit: No Status: Chronic Assessment and plan: per hx CKD III; labs around baseline monitor and avoid nephrotoxins (4) Diabetes mellitus Current Visit: No Status: Chronic Assessment and plan: HGB a1C 7.9 05/01/18 [facility] Diabetic Diet AC/HS Qualifiers: Diabetes mellitus type: type 2 Diabetes mellitus retirement insulin use: without retirement use Diabetes mellitus complication status: with kidney complications Diabetes mellitus complication detail: with chronic kidney disease Chronic kidney disease stage: stage 3 (moderate) Qualified Code(s): E11.22 - Type 2 diabetes mellitus with diabetic chronic kidney disease; N18.3 - Chronic kidney disease, stage 3 (moderate) (5) Hypertension Current Visit: No Status: Chronic Assessment and plan: mildly elevated at 156/70 resume home anti-htn meds and monitor PRN hydralazine for SBP greater than 160 Qualifiers: Hypertension type: essential hypertension Qualified Code(s): I10 - Essential (primary) hypertension - Time Spent With Patient Total time spent is greater than 50% in coordination of care (as documented) at patient's floor/unit and/or counseling patient: less than 15 minutes
[2018-05-09] MEDS: Insulin LISPRO 300 UNITS/3 ML VIAL SQ SCH (17:41)
[2018-05-09] MEDS ORDERED: *HR* Heparin 5,000 UNIT/ML VIAL SQ SCH (18:00)
[2018-05-09] MEDS ORDERED: Gabapentin 300 MG CAPSULE PO SCH (21:00)
[2018-05-09] MEDS ORDERED: Insulin LISPRO 300 UNITS/3 ML VIAL SQ SCH (21:00)
[2018-05-10 02:45] LABS: Calcium 8.8 mg/dL (8.6-10.3); Potassium 3.5 mEq/L (3.5-5.1)
[2018-05-10] MEDS ORDERED: Isosorbide MONOnitrate (24 HR) 30 MG TAB.ER.24H PO SCH (09:00)
[2018-05-10] MEDS ORDERED: Isosorbide MONOnitrate (24 HR) 60 MG TAB.ER.24H PO SCH (09:00)
[2018-05-10] MEDS ORDERED: Ranolazine 500 MG TAB.ER.12H PO SCH (09:00)
[2018-05-10] MEDS ORDERED: Multivit/Ca/Min/Fe/FA 1 TAB TABLET PO SCH (09:00)
[2018-05-10] MEDS ORDERED: PSYLLIUM HUSK PO SCH (09:00)
[2018-05-10] MEDS ORDERED: Aspirin 81 MG TAB.CHEW PO SCH (09:00)
[2018-05-10] MEDS ORDERED: ASPARTAME PO SCH (09:00)
[2018-05-10] MEDS ORDERED: Cholecalciferol (D-3) 1,000 UNIT TABLET PO SCH (09:00)
[2018-05-10] MEDS: Insulin LISPRO 300 UNITS/3 ML VIAL SQ SCH ×2 (09:14→12:48)
[2018-05-10 11:19] VITALS: BP 116/71
--- NOTE | 2018-05-10 12:30 | Discharge Summary ---
Orders not resulted at time of discharge: Pending orders 05/09/18 13:50 ECG 12 lead ECG [ECG] Stat Date of Encounter: 05/10/18 Time of Encounter: 12:22 - Discharge Diagnosis (1) Chest pain Priority: Primary Status: Resolved Assessment and Plan: Atypica chest pain x 3-4 days described as "sinking and heart skipping" sensation getting progressively worse Associated s/sx included diaphoresis, nausea, dizziness, and dyspnea Significant CAD including CABG x3; LHC 12/07 with 1 of 3 bypass grafts patent --Aggressive risk factor modification and medical management chosen at this time Significant risk factors including; HTN Obesity, FMH DM, HDL, Sedentary --Mild chest pain at time of my assessment 08/02. Admit for observation for further monitoring and evaluation Increase Imdur dose if chest pain persists PLAN: - cardiac enzymes x 2 q 6 hr - EKG without ischemic changes - ASA 81mg daily - Continue Metoprolol - O2 by NC to keep SpO2 greater than 92% PRN - CBCD, BMP in AM - Heparin 5000 U SQ BID - 2D Echo - Increase Imdur dose 05/10/18--Chest pain resolved with increased Imdur dose. As stated above she has significant CAD. We will continue with medical management and risk factor modifications. Qualifiers: Chest pain type: unspecified Qualified Code(s): R07.9 - Chest pain, unspecified (2) CAD (coronary artery disease) Priority: Secondary Status: Chronic Qualifiers: Coronary Disease-Associated Artery/Lesion type: unspecified vessel or lesion type [place] vs. 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 Neil is a 73 year old female with a PMH of significant CAD including CABG 3, DM, HTN and CKD 3. She presents with a 3-4 day history of intermittent midsternal atypical chest pain/discomfort with radiation to the left and right shoulder as well as right neck. Patient had an C 12/07 showing 1 of 3 patent vessels S/P CABG. She was discharged home at that time with medical management and aggressive risk factor modification. On admission the EKG did not have any ischemic changes, serial troponins negative. No events on telemetry overnight. Repeat TTE obtained and found to be grossly normal with EF 65-70%, mild LVH, mild ADLs without pulmonary hypertension. Chest pain is improved with increased dose of Imdur to 60 mg daily. She reports that she was on 60 mg of Imdur daily but that this was recently decreased to 30. With resolution of chest pain and increased dose of Imdur and negative workup she is being discharged home in stable condition. She has a follow-up with cardiology as previously scheduled. Follow-up with primary care provider in one week. Discharge discussed with: patient, nurse - Time Spent with Patient Total time spent providing and/or coordinating discharge services: Less than 30 minutes - Discharge Medications Prescriptions: Isosorbide MONOnitrate (24 HR) [Imdur] 60 mg PO DAILY 30 Days #30 tab.er.24h Home Medications: Atorvastatin [Lipitor] 40 mg PO HS 11/20/16 [History] Cholecalciferol (D-3) [Vitamin D] 5,000 units PO DAILY 11/20/16 [History] Clopidogrel [Plavix] 75 mg PO DAILY 11/20/16 [History] Docusate Sodium [Dok] 500 mg PO HS 11/20/16 [History] Gabapentin [Neurontin] 300 mg PO HS 11/20/16 [History] Glimepiride [Amaryl] 4 mg PO QAM 11/20/16 [History] LORazepam [Ativan] 1 mg PO DAILY PRN 11/20/16 [History] Losartan Potassium [Cozaar] 50 mg PO DAILY 11/20/16 [History] Metoprolol [Lopressor] 12.5 mg PO BID 11/20/16 [History] Multivitamin [Multivitamins] 1 each PO DAILY 11/20/16 [History] Nitroglycerin [Nitrostat] 0.4 mg SL Q5M PRN 11/20/16 [History] Ondansetron ODT [Zofran ODT] 8 mg PO Q8H PRN 11/20/16 [History] Ranolazine [Ranexa] 1,000 mg PO DAILY 11/20/16 [History] Sennosides [Ex-Lax] 75 mg PO HS 11/20/16 [History] Dulaglutide [Trulicity] 1.5 mg SQ SA 05/09/18 [History] Escitalopram Oxalate 5 mg PO DAILY 05/09/18 [History] Flaxseed 30 ml PO DAILY 05/09/18 [History] Pantoprazole Sodium [Protonix] 20 mg PO DAILY 05/09/18 [History] Psyllium Husk/Aspartame [Natural Fiber Powder] 40 ml PO DAILY 05/09/18 [History] Isosorbide MONOnitrate (24 HR) [Imdur] 60 mg PO DAILY 30 Days #30 tab.er.24h 05/10/18 [Rx] Allergies/Adverse Reactions: Allergy/AdvReac Type Severity Reaction Status Date / Time biotin AdvReac Itching Verified 05/09/18 14:50 latex AdvReac Rash Verified 05/09/18 14:50 Date of admission: 05/09/18 16:07 Primary care physician: Selene Lerner MD Discharging clinician: Dale Canchola Anticipated date of discharge: 05/10/18 - Constitutional Vitals: Temp Pulse Resp BP Pulse Ox 98.0 F 65 17 116/71 99 05/10/18 11:12 05/10/18 11:12 05/10/18 11:12 05/10/18 11:12 05/10/18 11:12 General appearance: Present: A&O X 3, morbidly obese Exam: see exam - Head Head exam: Present: atraumatic, normocephalic - Eye Eye exam: Present: PERRL, conjuntiva pink, sclera anicteric Pupils: Present: PERRL - Neck Neck exam general surgery: Present: supple, trachea midline. Absent: lymphadenopathy - Respiratory Respiratory exam: Present: CTAB. Absent: accessory muscle use, rales, rhonchi, wheezes - Cardiovascular Cardiovascular exam: Present: RRR, +S1, +S2. Absent: diastolic murmur, gallop, rubs, systolic murmur - GI/Abdominal GI/Abdominal exam: Present: normal bowel sounds, soft, no peritoneal signs. Absent: distended, tenderness - Extremities Exam Extremities exam: Present: warm, radial pulses palpable and symmetrical. Absent: calf tenderness, cyanotic, pedal edema - Neurological Exam Neurological exam: Present: CN II-XII intact, oriented X3, no focal deficits. Absent: pronater drift, facial droop, speech deficit - Skin Skin exam: Present: dry, intact - Patient Status Disposition: Home, Self-Care Condition: Good Functional capacity at discharge: independent ambulation Overall status at discharge: patient is progressing back to baseline - Discharge Instructions Instructions: Chest Pain (DC) Follow Up With: Selene Lerner MD [Primary Care Provider] - - Diet and Activity Activity: increase activity as tolerated, resume usual activities as tolerated Diet: diabetic diet, low fat, low cholesterol, low salt diet - VTE Documentation of Mechanical Device: Intermittent pneumatic compression device
--- NOTE | 2018-05-12 07:43 | Electrocardiograph Report ---
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
== END 2018-05-10 13:43 | disposition home or self-care (01) ==
LOC: 3BNU 13:08 → EMEROOARM 13:08 → 3BNU 16:48
PROVIDERS: ADMIT Internal Medicine; ATTEND Internal Medicine